=== PATIENT | male | born 1965 | race Caucasian/White ===

== ENCOUNTER 2017-04-20 07:58 | Emergency (ER) | payer OTHER ==
[2017-04-20 07:58] VITALS: BMI 46.5
[2017-04-20 08:08] VITALS: TEMP 98
--- NOTE | 2017-04-20 08:40 | ED PDOC ---
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 Loving is a 51 year old male with a past medical history significant for HTN who presents the [facility] ED with a chief complaint of headache, right elbow and right rib posterior rib pain after he slipped and fell on the ice when he was getting out of his car this morning at approximately 0550. Patient reports that this fall was mechanical in nature and he experienced no dizziness or LOC prior to falling. However he does note that for a period of time after the fall, he was "foggy". He also endorses right elbow and right rib pain from the fall. He denies any fever, chills, changes in vision/hearing/smell, neck pain, neck stiffness, chest pain, palpitations, SOB, cough, abdominal pain, N/V/D/C, bowel/ bladder incontinence, slurred speech, seizures, or any numbness/tingling/ weakness of any extremity. (Ciro Blank) Past Medical History - Provider Review Nursing Documentation Reviewed: Yes - Travel History Have you recently traveled outside [place] w/in the past 3 mons?: No - Past History Past History: No Previous - Infectious Disease Hx of Infectious Diseases: None - Tetanus Immunization Tetanus Immunization: Unknown - Cardiac Hx Hypertension: Yes - Psychiatric Hx Substance Use: No - Suicidal Assessment Feels Threatened In Home Enviroment: No <Ciro Blank - Last Filed: 04/20/17 10:16> Family/Social History - Physician Review Nursing Documentation Reviewed: Yes Family/Social History: Diabetes, Hypertension Smoking Status: Never Smoked Hx Alcohol Use: Yes Frequency of alcohol use: Socially Hx Substance Use: No Hx Substance Use Treatment: No <Ciro Blank - Last Filed: 04/20/17 10:16> Allergies/Home Meds <Ciro Blank - Last Filed: 04/20/17 10:16> <Arsh Borden - Last Filed: 04/20/17 10:22> Allergies/Adverse Reactions: Allergies ibuprofen Allergy (Verified 04/20/17 08:04) ANAPHYLAXIS Home Medications: Home Meds Medication Instructions Recorded Confirmed Lisinopril [Zestril] 10 mg PO DAILY 04/20/17 04/20/17 Review of Systems - Physician Review All systems were reviewed & negative as marked: Yes - Review of Systems Constitutional: Normal. absent: Fevers, Night Sweats Eyes: Normal. absent: Vision Changes ENT: Normal. absent: Hearing Changes Respiratory: Normal. absent: SOB, Cough Cardiovascular: Normal. absent: Chest Pain, Palpitations, Syncope Gastrointestinal: Normal. absent: Abdominal Pain, Stool Changes, Constipation, Diarrhea, Nausea, Vomiting Genitourinary Male: Normal. absent: Urinary Output Changes Musculoskeletal: Arthralgias (Right elbow and right rib pain). absent: Normal, Joint Swelling Skin: Normal. absent: Rash, Laceration Neurological: Headache, Dizziness. absent: Normal, Focal Weakness, Gait Changes , Speech Changes, Facial Droop, Disequilibrium, Seizure Endocrine: Normal Hemo/Lymphatic: Normal Psychiatric: Normal <Ciro Blank - Last Filed: 04/20/17 10:16> Physical Exam Vital Signs Reviewed: Yes Temperature: Afebrile Blood Pressure: Normal Pulse: Regular Respiratory Rate: Normal Appearance: Positive for: Well-Appearing, Non-Toxic, Comfortable Pain Distress: None Mental Status: Positive for: Alert and Oriented X 3 - Systems Exam Head: Present: Atraumatic, Normocephalic, Other (Erythema to posterior cranium) Pupils: Present: PERRL. No: Sluggish, Non-Reactive, Pinpoint Extroacular Muscles: Present: EOMI. No: Gaze Palsy, Entrapment Conjunctiva: Present: Normal. No: Injected, Icteric Mouth: Present: Moist Mucous Membranes. No: Dry, Drooling Pharnyx: Present: Normal. No: ERYTHEMA, EXUDATE, TONSILS ENLARGED Nose (External): Present: Atraumatic Nose (Internal): Present: Normal Inspection, No Active Bleeding Neck: Present: Normal Range of Motion, Trachea Midline. No: Meningeal Signs, MIDLINE TENDERNESS, Paraspinal Tenderness, JVD, Lymphadenopathy Respiratory/Chest: Present: Clear to Auscultation, Good Air Exchange, Tender to Palpation (Right posterior ribs TTP). No: Respiratory Distress, Accessory Muscle Use, Wheezes, Decreased Breath Sounds, Rales, Rhonchi, Tachypneic Cardiovascular: Present: Regular Rate and Rhythm, Normal S1, S2, Peripheal Pulses Present. No: Murmurs, Irregular Rhythm, Tachycardic, Bradycardic Abdomen: Present: Normal Bowel Sounds. No: Tenderness, Distention, Peritoneal Signs Back: Present: Normal Inspection. No: CVA Tenderness, Midline Tenderness, Paraspinal Tenderness Upper Extremity: Present: Normal ROM, NORMAL PULSES, Tenderness (TTP to posterior right elbow with no limitations in ROM of this joint), Neurovascularly Intact, Capillary Refill < 2s. No: Normal Inspection, Cyanosis , Edema, Swelling, Erythema, Temperature Abnormalties, Deformity Lower Extremity: Present: Normal Inspection, NORMAL PULSES, Normal ROM, Neurovascularly Intact, Capillary Refill < 2 s. No: Edema, CALF TENDERNESS, Cyanosis, Anika's Sign, Tenderness, Swelling, Erythema, Deformity, Temperature Abnormalties Neurological: Present: GCS=15, CN II-XII Intact, Speech Normal, Motor Func Grossly Intact, Normal Sensory Function, Gait Normal Skin: Present: Warm, Dry, Normal Color. 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 <Ciro Blank - Last Filed: 04/20/17 10:16> <Arsh Borden - Last Filed: 04/20/17 10:22> ED Course and Treatment: 04/20/17 08:45 Impression: 51 year old male with a past medical history significant for HTN who presents the [facility] ED with a chief complaint of headache, right elbow and right rib posterior rib pain after he slipped and fell on the ice when he was getting out of his car this morning at approximately 0550 Plan: -CT Head w/o contrast -Right Elbow and Right Rib X-Ray -Reassess and disposition Prior Visits: Patient has not been seen in the ED since 2012 (Ciro Blank) 04/20/17 10:20 51 yo male with mechanical fall c/o headache, right elbow and right rib pain. Agree with resident history and physical, assessment and plan. Xrays negative for fracture or any abnormalities. CT Head negative for ICH or fx. Patient feels better. Will discharge with PMD f/u. (Arsh Borden) - RAD Interpretation Radiology Orders: 04/20/17 08:28 HEAD W/O CONTRAST [CT] Stat 04/20/17 08:34 ELBOW RIGHT 3 VIEWS ROUTINE [RAD] Stat RIBS RIGHT [RAD] Stat - Medication Orders Current Medication Orders: Discontinued Medications Acetaminophen (Tylenol 325mg Tab) 975 mg PO STAT STA Stop: 04/20/17 09:41 Last Admin: 04/20/17 09:40 Dose: 975 mg MAR Pain/Vitals Document 04/20/17 09:40 LA (Rec: 04/20/17 10:13 LA [id number]) Pain Reassessment Is This A Pain ReAssessment? No Sleep Is patient sleeping during reassessment? No Presence of Pain Presence of Pain Yes Pain Scale Used Pain Scale Used Numeric Location Left, Right or Bilateral Right Pain Location Body Site Back Disposition/Present on Arrival - Present on Arrival Any Indicators Present on Arrival: No History of DVT/PE: No History of Uncontrolled Diabetes: No Urinary Catheter: No History of Decub. Ulcer: No History Surgical Site Infection Following: None - Disposition Have Diagnosis and Disposition been Completed?: Yes Disposition Time: 10:16 <Ciro Blank - Last Filed: 04/20/17 10:16> - Disposition Patient Plan: Discharge <Arsh Borden - Last Filed: 04/20/17 10:22> - Disposition Diagnosis: Head injury, Elbow contusion, Rib contusion Disposition: HOME/ ROUTINE Condition: IMPROVED Discharge Instructions (ExitCare): Head Injury (ED), Rib Contusion (ED) Additional Instructions: Mr Loving, thank you for letting us take care of you today. Your provider was Dr. Borden You were treated for Head Injury, Elbow Contusion, Rib ContusionThe emergency medical care you received today was directed at your acute symptoms. If you were prescribed any medication, please fill it and take as directed. It may take several days for your symptoms to resolve. Return to the Emergency Department if your symptoms worsen, do not improve, or if you have any other problems. Please contact your doctor or call one of the physicians/clinics you have been referred to that are listed on the Patient Visit Information form that is included in your discharge packet. Bring any paperwork you were given at discharge with you along with any medications you are taking to your follow up visit. Our treatment cannot replace ongoing medical care by a primary care provider (PCP) outside of the emergency department. Thank you for allowing the [facility] team to be part of your care today. If you had an X-Ray or CT scan: A Radiologist will review the ED reading if any change in treatment is needed we will contact you. If you had a blood, urine, or wound culture: It will take several days for the results, if any change in treatment is needed we will contact you. If you had an STI test: It will take 48 hours for the results. Please call after 1 week if you have not heard back. Prescriptions: Acetaminophen [Tylenol 325mg tab] 650 mg PO Q4 #60 tab Referrals: PCP,NO [Non-Staff] - Follow up with primary Forms: [employer] (Somali), [employer] (Martiniquais), WORK NOTE
--- NOTE | 2017-04-20 09:46 | CT ---
PROCEDURE: CT HEAD WITHOUT CONTRAST. HISTORY: Fall/Head trauma COMPARISON: None available. TECHNIQUE: Axial computed tomography images were obtained through the head/brain without intravenous contrast. Radiation dose: Total exam DLP = 775.01 mGy-cm. This CT exam was performed using one or more of the following dose reduction techniques: Automated exposure control, adjustment of the mA and/or kV according to patient size, and/or use of iterative reconstruction technique. FINDINGS: HEMORRHAGE: No acute parenchymal, subarachnoid or extra-axial hemorrhage. BRAIN: No mass effect or edema. No atrophy or chronic microvascular ischemic changes. The ventricular and sulcal size are within range of normal this patient's stated age. VENTRICLES: No obstructive hydrocephalus. CALVARIUM: Unremarkable. PARANASAL SINUSES: Paranasal sinuses well-developed. No fluid levels seen to suggest acute sinusitis. There is opacification several right and few left-sided ethmoid air cells. Note is made of polypoid soft tissue density within the right parasagittal nasopharynx which could represent elongated uvula. The possibility of a nasal polyp arising from the proximal margin of the right middle turbinate not excluded. . Clinical correlation with physical exam recommended MASTOID AIR CELLS: Unremarkable as visualized. No inflammatory changes. OTHER FINDINGS: None. IMPRESSION: No acute intracranial hemorrhage. See above discussion for additional findings and recommendations.
--- NOTE | 2017-04-20 10:10 | RAD ---
PROCEDURE: Right elbow dated 04/20/2017 HISTORY: Fall/elbow pain COMPARISON: No prior. FINDINGS: BONES: Normal. No fracture. JOINTS: Normal. No osteoarthritis. SOFT TISSUES: Normal. JOINT EFFUSION: None. OTHER FINDINGS: None. IMPRESSION: No evidence of acute displaced fracture nor dislocation. If symptoms persist or occult fracture suspected clinically recommend repeat radiographs in 7-10 days as most fractures should become radiographically evident in this timeframe.
[2017-04-20 10:12] VITALS: BP 132/79; PULSE 68; RESP 18; O2SAT 97
--- NOTE | 2017-04-20 12:07 | RAD ---
PROCEDURE: Right rib series dated 04/20/2017 HISTORY: Fall/rib pain COMPARISON: No prior study available for comparison TECHNIQUE: Four views of the right ribs performed. FINDINGS: The current study reveals no evidence of acute displaced right-sided rib fracture. Osseous structures appear intact so far as can be seen. No evidence of right-sided pneumothorax. No infiltrate or effusion. Multilevel degenerative spondylosis of the thoracic and lumbar spine. IMPRESSION: No acute rib fractures are identified however if symptoms persist or occult fracture suspected clinically consider followup CT scan.
== END 2017-04-20 10:13 | disposition home or self-care (01) ==
LOC: ED 07:58
DX: S09.90XA Unspecified injury of head, initial encounter (principal); S20.211A Contusion of right front wall of thorax, initial encounter; S50.01XA Contusion of right elbow, initial encounter; W00.0XXA Fall on same level due to ice and snow, initial encounter; I10 Essential (primary) hypertension; Z82.49 Family history of ischemic heart disease and other diseases of the circulatory system